=== PATIENT | male | born 1940 | race Caucasian/White ===

== ENCOUNTER 2020-10-31 12:55 | Outpatient (REF) | payer MEDICARE, BC, SELFPAY ==
--- NOTE | ~2020-10-31 | US_ITS ---
EXAMINATION: US EXTRACRANIAL CAROTID DUPLEX, BILATERAL CLINICAL INFORMATION: Carotid stenosis COMPARISON: None TECHNIQUE: Real-time ultrasound and Doppler techniques (integrating B-mode 2-D vascular images, Doppler spectral analysis and color-flow Doppler imaging) were utilized to interrogate the extracranial carotid arteries, the vertebral arteries and proximal subclavian arteries bilaterally. The degree of stenosis is determined by criteria similar to NASCET. FINDINGS: Right Side: 1. There is minimal atherosclerotic plaque seen in the bifurcation/proximal ICA region. 2. The common carotid artery PSV proximally is 63 cm/s and distally 69 cm/s. 3. The proximal internal carotid artery velocities are 59 cm/s systolic and 11 cm/s diastolic. 4. The proximal external carotid artery PSV is 60 cm/s. 5. The vertebral artery shows antegrade flow. 6. The subclavian artery waveforms are normal. Left Side: 1. There is minimal atherosclerotic plaque seen in the bifurcation/proximal ICA region. 2. The common carotid artery PSV proximally is 86 cm/s and distally 69 cm/s. 3. The proximal internal carotid artery velocities are 66 cm/s systolic and 12 cm/s diastolic. 4. The proximal external carotid artery PSV is 72 cm/s. 5. The vertebral artery shows antegrade flow. 6. The subclavian artery waveforms are normal. US/US carotid duplex BI IMPRESSION: 1. RIGHT: Minimal, non-hemodynamically significant stenosis of the proximal right internal carotid artery corresponding to a 0-49% stenosis by velocity criteria. 2. LEFT: Minimal, non-hemodynamically significant stenosis of the proximal left internal carotid artery corresponding to a 0-49% stenosis by velocity criteria.
== END 2020-10-31 12:56 | disposition home or self-care (01) ==
LOC: HO.US 12:55
PROVIDERS: Visit Provider Internal Medicine
DX: I65.29 Occlusion and stenosis of unspecified carotid artery (principal)
CPT/HCPCS: 93880